=== PATIENT | female | born 1980 | race Caucasian/White ===

== ENCOUNTER 2019-01-15 18:48 | Emergency (ER) | payer SELFPAY ==
[2019-01-15] MEDS ORDERED: Zofran 4 MG/2 ML VIAL IV ONE ×2 (19:26→21:20)
[2019-01-15] MEDS ORDERED: Zofran 4 MG/2 ML VIAL ONE ×2 (19:29→21:24)
--- NOTE | 2019-01-15 19:47 | ERPHSYRPT ---
- History of Present Illness Time Seen by Provider: 01/15/19 19:00 Source: patient Exam Limitations: clinical condition Patient Subjective Stated Complaint: PT WAS DRIVING AND SHE STARTED TO NOT FEEL GOOD, SHE STATES SHE VOMITED AND THEN GOT DIZZY, HEADACHE, SHE WAS AFRAID SHE WAS GOING TO [place] SO HER BOYFRIEND DROVE HER HERE,PT WAS GOTTEN OUT OF CAR AND PLACED ON CART, Triage Nursing Assessment: PT ALERT, WAS ABLE TO PIVOT TO BED, VOMITED X1, SKIN W/D/P. RESP EASY,ABD SOFT, MOVES ALL EXT WELL, Physician History: PATIENT WITH A HISTORY OF TYPE 3 DIABETES, HYPERTENSION HAS BEEN OUT OF HER HYPERTENSIVE MEDICATIONS, COREG, COZAAR AND CLONIDINE FOR SEVERAL DAYS, HAS NOT FILLED HER MEDICATIONS. WHILE DRIVING MOTOR VEHICLE COMPLAINS OF DIZZINESS, EMESIS X 4 EPISODES. STATES THE ROOM IS SPINNING. ALSO COMPLAINS OF GENERALIZED HEADACHE X 5 DAYS, DENIES BLURRED VISION, SLURRED SPEECH, DIARRHEA OR FEVER. Timing/Duration: day(s) Quality: throbbing Head Pain Location: global Severity of Pain-Max: moderate Severity of Pain-Current: moderate Recent Head Trauma: occasional headaches Modifying Factors: Improves With: exposure to light, other (RAN OUT OF 3 BLOOD PRESSURE MEDICATIONS) Associated Symptoms: nausea/vomiting, other (DIZZINESS) Previous symptoms: no prior history Allergies/Adverse Reactions: desloratadine [From Clarinex] Allergy (Verified 01/15/19 18:57) sertraline [From Zoloft] Allergy (Verified 01/15/19 18:57) codeine Adverse Reaction (Verified 01/15/19 18:57) sumatriptan [From Imitrex] Adverse Reaction (Verified 01/15/19 18:57) Home Medications: Atorvastatin Calcium [Lipitor 20MG Tablet] 20 mg DAILY 01/15/19 [History] Carvedilol 3.125 mg [Coreg 3.125 MG] 3.125 mg DAILY 01/15/19 [History] Clonazepam 1 mg DAILY 01/15/19 [History] Clonidine HCl 0.1 mg [Catapres 0.1 MG] 0.1 mg DAILY 01/15/19 [History] Insulin Glargine,Hum.rec.anlog [Basaglar Kwikpen U-100] 10 units DAILY 01/15/19 [History] Losartan Potassium 50 mg [Cozaar 50 MG] 50 mg DAILY 01/15/19 [History] Metformin HCl [Metformin ER Gastric] 1,000 mg BID 01/15/19 [History] Hx Influenza Vaccination/Date Given: Yes Hx Pneumococcal Vaccination/Date Given: No Immunizations Up to Date: Yes - Review of Systems Constitutional: No Fever, No Chills Eyes: No Symptoms Ears, Nose, & Throat: No Symptoms Respiratory: No Symptoms, No Cough, No Dyspnea Cardiac: No Symptoms, No Chest Pain, No Edema, No Syncope Abdominal/Gastrointestinal: Nausea, Vomiting, No Abdominal Pain, No Diarrhea Genitourinary Symptoms: No Dysuria Musculoskeletal: No Symptoms, No Back Pain, No Neck Pain Skin: No Symptoms, No Rash Neurological: Headache, No Dizziness, No Focal Weakness, No Sensory Changes Psychological: No Symptoms Endocrine: No Symptoms All Other Systems: Reviewed and Negative - Past Medical History Pertinent Past Medical History: Yes Cardiac History: Hypertension Endocrine Medical History: Diabetes Type II - Past Surgical History Past Surgical History: Yes Gastrointestinal: Appendectomy, Cholecystectomy Female Surgical History: Tubal Ligation, Other Other Surgical History: ABLASION - Social History Smoking Status: Current every day smoker Exposure to second hand smoke: Yes Drug Use: none Patient Lives Alone: No - Female History Hx Last Menstrual Period: ABLASION Hx Now: No - Nursing Vital Signs Nursing Vital Signs: Initial Vital Signs Temperature 98.3 F 01/15/19 18:49 Pulse Rate 106 H 01/15/19 18:49 Respiratory Rate 20 01/15/19 18:49 Blood Pressure 175/104 01/15/19 18:49 O2 Sat by Pulse Oximetry 94 L 01/15/19 18:49 Pain Scale Pain Intensity 4 - Physical Exam General Appearance: mild distress Eye Exam: PERRL/EOMI Ears, Nose, Throat Exam: normal ENT inspection Neck Exam: normal inspection, non-tender Respiratory Exam: normal breath sounds Cardiovascular Exam: regular rate/rhythm, normal heart sounds Gastrointestinal/Abdominal Exam: soft, normal bowel sounds (MORBID OBESITY) Back Exam: normal inspection Mental Status Exam: alert, 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 3 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 Exam: normal hearing, normal speech, PERRL Coordination/Gait Exam: normal finger to nose Motor/Sensory Exam: no motor deficit DTR Exam: bicep (R): 2+, bicep (L): 2+, tricep (R): 2+, tricep (L): 2+ Skin Exam: normal color SpO2 Interpretation: normal SpO2: 94 O2 Delivery: Room Air - Course EKG Interpreted by Me: RATE, Sinus Rhythm, NORMAL AXIS (RATE 98) Ordered Tests: Active Orders 24 hr Category Date Time Status Home Office Claims Examiner STAT Care 01/15/19 19:49 Active EKG-ER Only STAT Care 01/15/19 19:48 Active IV Insertion STAT Care 01/15/19 19:48 Active Oxygen-ED Only Nasal Cannula 2 lpm Care 01/15/19 19:48 Active Pulse Oximetry (ED) STAT Care 01/15/19 19:48 Active AMYLASE Stat Lab 01/15/19 19:15 Completed BMP Stat Lab 01/15/19 19:15 Completed CBC W DIFF Stat Lab 01/15/19 19:15 Completed LIPASE Stat Lab 01/15/19 19:15 Completed Manual Differential NC Stat Lab 01/15/19 19:15 Completed TROPONIN Q3H Lab 01/15/19 19:15 Completed TROPONIN Q3H Lab 01/16/19 02:00 Ordered TROPONIN Q3H Lab 01/16/19 05:00 Ordered TROPONIN Q3H Lab 01/16/19 08:00 Ordered Medication Summary Generic Name Dose Route Start Last Admin Trade Name Freq PRN Reason Stop Dose Admin Sodium Chloride 1,000 mls @ 100 mls/hr 01/15/19 20:00 01/15/19 20:04 Sodium Chloride 0.9% 1000 Ml IV 02/14/19 19:59 100 mls/hr .Q10H ESTEBAN Administration Discontinued Medications Generic Name Dose Route Start Last Admin Trade Name Freq PRN Reason Stop Dose Admin Fentanyl Citrate 100 mcg 01/15/19 21:20 01/15/19 21:27 Sublimaze 100 Mcg/2 Ml IV 01/15/19 21:21 100 mcg STAT ONE Administration Fentanyl Citrate Confirm 01/15/19 21:24 Sublimaze 100 Mcg/2 Ml Administered 01/15/19 21:25 Dose 100 mcg .ROUTE .STK-MED ONE Metoprolol Tartrate 5 mg 01/15/19 19:48 01/15/19 20:05 Lopressor 5 Mg/5 Ml Injection IV 01/15/19 19:49 5 mg STAT ONE Administration Metoprolol Tartrate Confirm 01/15/19 19:53 Lopressor 5 Mg/5 Ml Injection Administered 01/15/19 19:54 Dose 5 mg IV .STK-MED ONE Ondansetron HCl 4 mg 01/15/19 19:26 01/15/19 19:31 Zofran 4 Mg/2 Ml Vial IV 01/15/19 19:27 4 mg STAT ONE Administration Ondansetron HCl Confirm 01/15/19 19:29 Zofran 4 Mg/2 Ml Vial Administered 01/15/19 19:30 Dose 4 mg .ROUTE .STK-MED ONE Ondansetron HCl 4 mg 01/15/19 21:20 01/15/19 21:27 Zofran 4 Mg/2 Ml Vial IV 01/15/19 21:21 4 mg STAT ONE Administration Ondansetron HCl Confirm 01/15/19 21:24 Zofran 4 Mg/2 Ml Vial Administered 01/15/19 21:25 Dose 4 mg .ROUTE .STK-MED ONE Pantoprazole Sodium 40 mg 01/15/19 19:50 01/15/19 20:04 Protonix 40 Mg Iv IV 01/15/19 19:51 40 mg STAT ONE Administration Pantoprazole Sodium Confirm 01/15/19 19:57 Protonix 40 Mg Iv Administered 01/15/19 19:58 Dose 40 mg IV .STK-MED ONE Lab/Rad Data: Laboratory Result Diagrams 01/15/19 19:15 01/15/19 19:15 Laboratory Results 01/15/19 01/15/19 01/15/19 Range/Units 19:15 19:15 19:15 WBC 13.7 H (4.0-10.5) K/mm3 RBC 5.38 (4.1-5.4) M/mm3 Hgb 14.8 (12.0-16.0) gm/dl Hct 47.3 H (35-47) % MCV 87.9 (78-100) fl MCH 27.5 (26-32) pg MCHC 31.3 L (32-36) g/dl RDW 14.4 H (11.5-14.0) % Plt Count 347 (150-450) K/mm3 MPV 12.3 H (6-9.5) fl Absolute Granulocytes 9.51 H (1.4-6.9) Segmented Neutrophils 74 H (36.0-66.0) % Band Neutrophils 1 (0.0-2.0) % Lymphocytes (Manual) 16 L (24-44) % Monocytes (Manual) 8 (0.0-12.0) % Basophils (Manual) 1 (0.0-1.0) % Platelet Estimate NORMAL (NORMAL) RBC Morphology NORMAL Sodium 140 (137-145) mmol/L Potassium 3.9 (3.5-5.1) mmol/L Chloride 98 (98-107) mmol/L Carbon Dioxide 28 (22-30) mmol/L Anion Gap 17.0 H (5-15) MEQ/L BUN 14 (7-17) mg/dL Creatinine 0.67 (0.52-1.04) mg/dL Estimated GFR > 60.0 ML/MIN Glucose 179 H (74-106) mg/dL Calcium 9.8 (8.4-10.2) mg/dL Troponin I < 0.012 (0.000-0.034) ng/mL Amylase 73 (30-110) U/L Lipase 143 (23-300) U/L - Progress Progress Note: 01/15/19 20:58 IV NORMAL SALINE 100ML/HR LOPRESSOR 5MG IV, FENTANYL 0.1MG IV 01/15/19 23:06 01/15/19 23:06, DIZZINESS, NAUSEA AND HEADACHE IMPROVED Counseled pt/family regarding: lab results, diagnosis, need for follow-up - Departure Departure Disposition: Home Clinical Impression: HYPERTENSION, ACUTE CEPHALGIA, NONCOMPLIANCE Condition: Stable Critical Care Time: No Referrals: Provider,Unknown [Primary Care Provider] - Additional Instructions: OBTAIN YOUR PRESCRIPTIONS TOMORROW AND TAKE DIRECTED. ZOFRAN 4MG EVERY 4 HOURS FOR NAUSEA. TAKE A DOSE OF CLONIDINE 0.1MG TOMORROW MORNING. ANTIVERT 25MG EVERY 8 HOURS NEEDED FOR DIZZINESS. Prescriptions: Ondansetron ODT 4 MG [Zofran Odt 4 mg] 4 mg PO Q6H PRN PRN #10 tab.rapdis PRN Reason: Nausea Meclizine HCl 25 mg [Antivert 25 mg] 25 mg PO Q8HPRN PRN #15 tablet PRN Reason: Dizziness
[2019-01-15] MEDS ORDERED: LOPRESSOR 5 MG/5 ML INJECTION IV ONE ×2 (19:48→19:53)
[2019-01-15] MEDS ORDERED: PROTONIX 40 MG IV IV ONE ×2 (19:50→19:57)
[2019-01-15] MEDS ORDERED: Sodium Chloride 0.9% 1000 ML 1,000 ML ONE (19:53)
[2019-01-15 19:54] LABS: Granulocyte Absolute (ANC) 9.51 (1.4-6.9); Hematocrit 47.3 % (35-47); Hemoglobin 14.8 gm/dl (12.0-16.0); Mean Cell Volume 87.9 fl (78-100); Mean Corpuscular Hemoglobin 27.5 pg (26-32); Mean Corpuscular Hgb Concent. 31.3 g/dl (32-36); Mean Platelet Volume 12.3 fl (6-9.5); Platelet Count 347 K/mm3 (150-450); Red Blood Count 5.38 M/mm3 (4.1-5.4); Red Cell Distribution Width 14.4 % (11.5-14.0); White Blood Count 13.7 K/mm3 (4.0-10.5)
[2019-01-15] MEDS ORDERED: Sodium Chloride 0.9% 1000 ML 1,000 ML IV SCH (20:00)
[2019-01-15 20:01] LABS: AMYLASE 73 U/L (30-110); BLOOD UREA NITROGEN 14 mg/dL (7-17); CHLORIDE 98 mmol/L (98-107); Calcium 9.8 mg/dL (8.4-10.2); Carbon Dioxide 28 mmol/L (22-30); Creatinine 1 0.67 mg/dL (0.52-1.04); Glucose 179 mg/dL (74-106); LIPASE 143 U/L (23-300); Potassium 3.9 mmol/L (3.5-5.1); SODIUM 140 mmol/L (137-145)
[2019-01-15 20:53] LABS: BAND 1 % (0.0-2.0); Basophil 1 % (0.0-1.0); Lymphocytes 16 % (24-44); Monocyte 8 % (0.0-12.0); Neutrophils 74 % (36.0-66.0); Platelet Estimate NORMAL (NORMAL); Total Cells Counted 100
[2019-01-15] MEDS ORDERED: SUBLIMAZE 100 MCG/2 ML IV ONE (21:20)
[2019-01-15] MEDS ORDERED: SUBLIMAZE 100 MCG/2 ML ONE (21:24)
[2019-01-15 22:23] VITALS: BP 155/106
[2019-01-15 23:12] VITALS: O2SAT 94
[2019-01-15 23:17] VITALS: PULSE 92
== END 2019-01-15 23:31 | disposition home or self-care (01) ==
LOC: ED 18:48
DX: I10 Essential (primary) hypertension (principal); R51 Headache; Z91.14 Patient's other noncompliance with medication regimen; E11.9 Type 2 diabetes mellitus without complications; Z79.4 Long term (current) use of insulin; Z79.899 Other long term (current) drug therapy
CPT/HCPCS: 36000; 36415; 80048; 82150; 83690; 84484; 85025; 93005; 93041; 96360; 96361; 96374; 96375; 96376; 99284; J2405; J3010